=== PATIENT | female | born 1970 | race Caucasian/White ===

== ENCOUNTER → 2017-07-16 | Outpatient (CLI) | payer BC ==
[2015-03-15 12:14] VITALS: BMI 25.5
[~2017-07-16] MED LIST: ALB6.7R INH; ASPI-715 PO; CEFUROXIME PO; CELCEPT PO; CELLC500PT PO; CHEMO; CHOL200022 PO; DIA10 PO; DIA5 PO; DIPH-740 PO; ELET20TA2 PO; ESTR-108 TD; FENT1PAT40; HCTZ25 PO; HYD2 PO; HYDR-4305 PO; HYDR-5517 PO; HYDR8TAB PO; IBUP-2704 PO; LOR5 PO; LORCET; LORCET PO; LORICET; MAX75 PO; MAXIDE; MEP50 PO; MEPE50TA29 PO; METH4TAB66 PO; NORCO PO; OXYC-865 PO; OXYC80TA52 PO; PANT40TA63 PO; PANT40TA65 PO; PER PO; PRE20 PO; PRE5 PO; PRO25 PO; PROM-110 PO; PROM25SU61 RC; RIZA10 PO; RIZA5TAB13 PO; SUCR1TAB85 PO; TRAM-420 PO; TRAM-627 PO; VER100 PO; VERA240C10 PO; VERA240C12 PO; VERA240T12 PO; [UNRECOGNIZED DRUG - CODE] PO; [UNRECOGNIZED DRUG - OTHER]; [UNRECOGNIZED DRUG - OTHER] PO
--- NOTE | 2017-07-19 16:14 | RADIOLOGY IMAGING REPORT ---
FACILITY: [facility] PATIENT NAME: Kati Killian : 1970 MR: [id number] V: [id number] EXAM DATE: [id number] ORDERING PHYSICIAN: SIENNA RAMÍREZ TECHNOLOGIST: Location: [facility] Patient: Kati Killian : 1970 Visit/Account:[id number] Date of Sevice: 07/16/2017 Exam type: SOFT TISSUE NON-SPECIFIC History: Palpable lump anterior lower right abdominal wall. Prior history of numerous small benign s uperficial tumors Comparison: None. Findings: Along the anterior lower right abdominal wall in location of patient's palpable abnormality is a 1.1 x 0.7 x 1.2 cm ovoid well-circumscribed echogenic space-occupying process with a 4 mm central hypoden sity. This projects within the musculature approximately 4 mm deep to the skin. This is of uncertai n etiology although does not demonstrate vascular flow IMPRESSION: 1. There is an echogenic well-circumscribed nodule with a central hypodensity along the anterior low er right abdominal wall approximately 4 mm deep to the skin. No internal blood flow was demonstrated . If of concern this would be amenable to percutaneous biopsy. Report Dictated By: Dahlia Smith MD at 07/19/2017 4:01 PM Report E-Signed By: Dahlia Smith MD at 07/19/2017 4:09 PM WSN:[email or web address]
== END ==
LOC: US 01:41
PROVIDERS: ATTEND Surgery
DX: R19.00 Intra-abdominal and pelvic swelling, mass and lump, unspecified site (principal)
CPT/HCPCS: 76999

== ENCOUNTER 2017-08-10 00:22 | Day surgery (SDC) | payer BC ==
[2015-03-15 12:14] VITALS: Ht 160 cm; Wt 75.7 kg
--- NOTE | 2017-08-05 14:55 | HISTORY AND PHYSICAL ---
DATE OF ADMISSION: August 10, 2017 CHIEF COMPLAINT Abdominal wall mass. HISTORY OF PRESENT ILLNESS This is a 47-year-old female who found a lump in the right side of her abdomen deep in the subcutaneous tissue. It causes her some pain. Patient underwent an ultrasound examination of this which revealed a 1.1 x 0.7 x 1.2 cm ovoid, well- circumscribed mass that projects within the musculature. They were uncertain of the etiology. PAST SURGICAL HISTORY * Appendectomy. * Back surgery. * Breast biopsy. * Cholecystectomy. * EGD. * Finger operation. * Right knee operation. * Right oophorectomy. * Total hysterectomy. * Tumor excision from her neck. ALLERGIES 1. ADHESIVE. 2. COMPAZINE. 3. LATEX. 4. MORPHINE. 5. RITUXAN. CURRENT MEDICATIONS * CellCept. * Oxycodone. * Prednisone. * Verapamil. REVIEW OF SYSTEMS No cardiac disease, pulmonary disease, liver or kidney disease. No diabetes. No hypertension. PHYSICAL EXAMINATION Examination reveals a 1 cm subcutaneous mass that is deep in the subcutaneous tissue on the right just below the level of the umbilicus. It does not reduce. IMPRESSION Abdominal wall mass. PLAN We will excise. Discussed the procedure, complications, recovery time. She seems to understand and wishes to proceed. LYNN
[~2017-08-10] VITALS: Ht 160 cm; Wt 75.7 kg
[~2017-08-10 00:22] MED LIST changes: +HYDR200T77 PO; +OXYC15TA79 PO
[2017-08-10] MEDS ORDERED: PROPOFOL EMUL(*) 10MG/ML 20 ML 0 ML ONE (07:41)
[2017-08-10] MEDS ORDERED: LIDOCAINE MPF 1% 5 ML VIAL ONE (07:41)
[2017-08-10] MEDS ORDERED: ONDANSETRON 4 MG/2 ML VIAL ONE (07:41)
[2017-08-10] MEDS ORDERED: DEXAMETHASONE SOD 4 MG/ML VIAL ONE (07:42)
[2017-08-10] MEDS ORDERED: fentaNYL CITR 100 MCG/2 ML AMP ONE ×4 (07:49→17:55)
[2017-08-10] MEDS: NORMOSOL R SOLN(*) 1000 ML BAG 1,000 ML IV PRN ×2 (08:23→15:20)
[2017-08-10 08:24] LABS: PLATELET COUNT, AUTOMATED 458 K/uL (150-450)
[2017-08-10 08:48] VITALS: BP 138/90
[2017-08-10] MEDS ORDERED: HYDROCORTISONE 100 MG/2 ML IVP ONE (09:10)
[2017-08-10] MEDS ORDERED: MIDAZOLAM 2 MG/2 ML VIAL IVP PRN (09:10)
[2017-08-10] MEDS ORDERED: LIDOCAINE/SOD BICARB 8.4% SYR ID ONE (09:10)
[2017-08-10] MEDS ORDERED: FAMOTIDINE 20 MG TAB PO ONE (09:10)
[2017-08-10] MEDS ORDERED: ROPIVACAINE 0.2% 20 ML VIAL ONE ×2 (16:11→16:57)
[2017-08-10] MEDS ORDERED: LIDOCAINE 2% JELLY 5 ML TUBE ONE (16:23)
[2017-08-10] MEDS ORDERED: ARTIFICIAL TEARS OINT 3.5 GM ONE (16:26)
--- NOTE | 2017-08-10 16:35 | Post Operative Progress Note ---
Post Operative Progress Note Date: Aug 10, 2017 Time: 17:09 Surgeon: jared Anesthesia: dr lucio Pre-Op Diagnosis: right lower quadrant abdominal wall mass Post-Op Diagnosis: lipoma between the external and internal oblique Procedure(s): excision of intramuscular lipoma SIENNA RAMÍREZ MD Aug 10, 2017 16:34
[2017-08-10] MEDS ORDERED: ePHEDrine 25 MG/5 ML DISP.SYR IVP ONE (16:55)
[2017-08-10] MEDS ORDERED: OXYC-865 PO (17:11)
--- NOTE | 2017-08-10 17:13 | Short(Outpt) Discharge Summary ---
Discharge Summary Reason for Hosp/Final Diag: (1) Abdominal wall mass Hospital Course & Plan: excision of intramuscular lipoma Departure Discharge to: Home Discharge Instructions Home Meds Active Scripts Oxycodone Hcl/Acetaminophen (PERCOCET 5-325 MG TABLET) 1 Each Tablet, 1 EACH PO Q4H Y for PAIN, #30 TAB Prov:SIENNA RAMÍREZ MD 08/10/17 Promethazine Hcl (PROMETHAZINE HCL) 25 Mg Tablet, 25 MG PO Q8H for Nausea, #14 TAB Prov:JEFFREY MALAGON MD 04/12/15 Reported Medications Oxycodone Hcl 15 Mg Tab (OXYCODONE HCL 15 MG TAB) 15 Mg Tablet, 15 MG PO 2-3XD, TAB 08/06/17 Hydroxychloroquine Sulfate (PLAQUENIL) 200 Mg Tablet, 200 MG PO QDAY 08/06/17 Fentanyl (Fentanyl) 1 Each Patch.td72, 50 MCG Q48H 12/04/16 Cholecalciferol (Vitamin D3) (VITAMIN D) 2,000 Unit Tablet, 1 TAB PO DAILY 01/07/15 Estradiol (ESTRADIOL TRANSDERMAL PATCH) 1 Each Patch.tdwk, 1 EACH TD 01/16/14 Albuterol Sulfate (PROVENTIL HFA) 6.7 Gm Inh, 1-2 PUFF INH PRN, INH 12/29/12 Aspirin (Aspirin) 81 Mg Tablet.dr, 81 MG PO DAILY, 0 Refills 03/22/11 Mycophenolate Mofetil (Cellcept) 500 Mg Tablet, 200 MG PO TID, 0 Refills 03/22/11 Prednisone (Prednisone) 5 Mg Tab, 5 MG PO QAM, 0 Refills 03/22/11 Discontinued Reported Medications Hydromorphone Hcl (DILAUDID) 4 Mg Tablet, 4 MG PO PRN 12/04/16 Verapamil Hcl (VERAPAMIL ER) 240 Mg Tablet.er, 240 MG PO BID 09/18/16 Diet: Regular Activity: As Tolerated Special Instructions: ice to incision for 48 hours remove bandage and shower to see me in one week, call [phone] for apt SIENNA RAMÍREZ MD Aug 10, 2017 17:13
--- NOTE | 2017-08-11 11:33 | OPERATIVE REPORT 1 ---
EVENT DATE: August 10, 2017 SURGEON: Keenan Fofana M.D. ANESTHESIOLOGIST: Dr. Abbott ANESTHESIA: General PREOPERATIVE DIAGNOSIS Abdominal wall mass in right lower quadrant. POSTOPERATIVE DIAGNOSIS Intramuscular lipoma of abdominal wall on the right. DESCRIPTION OF PROCEDURE The patient was placed in the supine position and given general anesthetic. The area of concern was marked preoperatively. We then made an incision over the top of this and carried down through the skin and subcutaneous tissue and removed some of the subcutaneous tissue but there did not seem to be a lipoma. We continued to dissect down to the level of the muscle. When we got there, there was a rent in the external oblique. It was widely and we could see fat bulging up through this. We then incised with the direction of mid fibers and shelled out a couple of centimeter lipoma. We then palpated and looked for a spigelian type hernia but I could not identify any abnormality in the internal oblique. At this point, the external oblique was closed with running 2-0 Vicryl. We injected 40 mL of 0.2% ropivacaine into the muscles and subcutaneous tissue. The subcutaneous tissue was reapproximated with 4-0 Maxon , the skin was closed with interrupted 4-0 Maxon and steri-strips were placed. The patient tolerated the procedure well. No apparent complications. MTDD
== END 2017-08-10 19:05 | disposition home or self-care (01) ==
LOC: OR 00:22
PROVIDERS: ATTEND Surgery
DX: R19.00 Intra-abdominal and pelvic swelling, mass and lump, unspecified site (principal)
CPT/HCPCS: 22903; 36415; 85025; 88305; 88313; J1100; J1720; J2795; J3010; 82040; 82247; 82310; 82374; 82435; 82565; 82947; 84075; 84132; 84155; 84295; 84450; 84460; 84520; J2001; J2405; J2704

== ENCOUNTER → 2018-01-26 | Outpatient (CLI) | payer BC ==
[2015-03-15 12:14] VITALS: BMI 25.5
[~2018-01-26] MED LIST changes: +CHOL200018 PO; -CHOL200022 PO; -HYDR-4305 PO; +HYDR-627 PO
--- NOTE | 2018-01-28 08:24 | RADIOLOGY IMAGING REPORT ---
FACILITY: [facility] [place] PATIENT NAME: TAZ ARTHUR : [id number] MR: [id number] V: [id number] EXAM DATE: ORDERING PHYSICIAN: UMANG HOLLEY TECHNOLOGIST: Mary Luna PROCEDURE:BILATERAL DIGITAL SCREENING MAMMOGRAM WITH CAD ASSISTED INTERPRETATION & 3D TOMOSYNTHESIS COMPARISON:Prior mammograms dated 10/30/16, 11/23/12 INDICATIONS:SCREENING FINDINGS: Moderately dense fibroglandular tissue is seen throughout the breasts. In the inferior portion of the Right breast just medial to midline there is a small grouping of round calcifications. These may actually represent skin calcifications & tangential view is recommended for further evaluation. There is a small area of architectural distortion in the upper outer quadrant of the Left breast in the location of a previous biopsy site. There are several vague calcifications in this location for which spot magnification views are recommended. DIAGNOSTIC CATEGORY 0--INCOMPLETE: NEED ADDITIONAL IMAGING EVALUATION. RECOMMENDATIONS: ADDITIONAL MAMMOGRAPHIC VIEWS REQUIRED: BILATERAL BREASTS. IMPRESSION: BIRADS 0: Incomplete, need additional imaging evaluation. Additional views of both breasts recommended as described. Dictated by: Dahlia Smith M.D. on 01/26/2018 at 16:43 Transcribed by: BONNIE on 01/28/2018 at 8:14 Approved by: Dahlia Smith M.D. on 01/28/2018 at 8:22 [facility]
== END ==
LOC: MAMO 12-30 00:30
PROVIDERS: ATTEND Obstetrics & Gynecology
DX: Z12.31 Encounter for screening mammogram for malignant neoplasm of breast (principal); R92.1 Mammographic calcification found on diagnostic imaging of breast
CPT/HCPCS: 77063; 77067

== ENCOUNTER → 2018-02-03 | Outpatient (CLI) | payer BC ==
[2015-03-15 12:14] VITALS: BMI 25.5
--- NOTE | 2018-02-04 08:46 | RADIOLOGY IMAGING REPORT ---
FACILITY: [facility] [place] PATIENT NAME: TAZ ARTHUR : [id number] MR: [id number] V: [id number] EXAM DATE: ORDERING PHYSICIAN: UMANG HOLLEY TECHNOLOGIST: Mary Luna PROCEDURE:BILATERAL DIAGNOSTIC DIGITAL MAMMOGRAM WITH CAD ASSISTED INTERPRETATION & 3D TOMOSYNTHESIS COMPARISON:Prior mammograms 01/26/18, 10/30/16, 11/23/12. INDICATIONS:FURTHER EVAL FINDINGS: The patient returns for mediolateral and lateral medial views of the Right breast in addition tangential views of the Right breast in addition to spot compression view in the Left CC projection and a mediolateral view of the Left breast. The small grouping of calcifications along the anterior portion of the Right breast was shown to represent skin calcifications. A small area of architectural distortion in the upper outer quadrant of the Left breast appears to be related to prior biopsy. The A calcifications in the lateral portion of the Left breast were again demonstrated although appear to be skin related. The patient did have a mole in this location. DIAGNOSTIC CATEGORY 2--BENIGN FINDING. RECOMMENDATIONS: ROUTINE MAMMOGRAM AND CLINICAL EVALUATION. IMPRESSION: BIRADS 2: Benign finding. Skin calcifications are present bilaterally. Dictated by: Dahlia Smith M.D. on 02/03/2018 at 14:45 Transcribed by: KENZIE on 02/03/2018 at 15:15 Approved by: Dahlia Smith M.D. on 02/04/2018 at 8:45 [facility]
== END ==
LOC: MAMO 10:27
PROVIDERS: ATTEND Obstetrics & Gynecology
DX: R92.2 Inconclusive mammogram (principal)
CPT/HCPCS: 77062; 77066

== ENCOUNTER → 2018-10-13 | Outpatient (CLI) | payer BC ==
[2015-03-15 12:14] VITALS: BMI 25.5
[~2018-10-13] MED LIST changes: -VERA240T12 PO; +VERA240T95 PO
--- NOTE | 2018-10-13 14:25 | RADIOLOGY IMAGING REPORT ---
FACILITY: [facility] - [place] PATIENT NAME: Kati Killian : 1970 MR: [id number] V: [id number] EXAM DATE: ORDERING PHYSICIAN: [facility] TECHNOLOGIST: Location: [facility] Patient: Kati Killian : 1970 Visit/Account:[id number] Date of Sevice: 10/13/2018 Exam type: STERNUM History: Sternum pain x6 weeks, history of bone tumors, no history of trauma Comparison: None. Findings: The lateral view is limited due to underpenetration. The oblique view of the sternum is grossly unre markable IMPRESSION: 1. A limited study of the sternum reveals no gross abnormality. If sternal pathology remains of str nasra clinical concern CT may be helpful for further evaluation Report Dictated By: Dahlia Smith MD at 10/13/2018 2:11 PM Report E-Signed By: Dahlia Smith MD at 10/13/2018 2:15 PM WSN:[email or web address]
== END ==
LOC: RAD 11:51
PROVIDERS: ATTEND Nurse Practitioner Family
DX: R07.89 Other chest pain (principal)
CPT/HCPCS: 71120